=== PATIENT | female | born 1970 | race Caucasian/White ===

== ENCOUNTER → 2016-07-24 | Outpatient (CLI) | payer OTHER ==
--- NOTE | 2016-07-25 14:46 | MM ---
Reason for exam: screening (asymptomatic). Last mammogram was performed 1 year ago. History: Family history of breast cancer in grandmother at age 70, premenopausal breast cancer in cousin at age 45, and breast cancer in aunt at age 56. Cyst aspiration of the right breast, 1989. Physical Findings: A clinical breast exam by your physician is recommended on an annual basis and results should be correlated with mammographic findings. MG 3D Screening Mammo W/Cad Bilateral CC and MLO view(s) were taken. Prior study comparison: July 16, 2015, bilateral MG 3d screening mammo w/cad. June 22, 2014, bilateral MG screening mammo w CAD. The breast tissue is heterogeneously dense. This may lower the sensitivity of mammography. No significant changes when compared with prior studies. ASSESSMENT: Benign, BI-RAD 2 RECOMMENDATION: Routine screening mammogram of both breasts in 1 year.
== END | disposition home or self-care (01) ==
LOC: RADMAMWWP 12:29
PROVIDERS: ATTEND Surgery
DX: Z12.31 Encounter for screening mammogram for malignant neoplasm of breast (principal)
CPT/HCPCS: 77063; G0202

== ENCOUNTER → 2017-10-29 | Outpatient (CLI) | payer OTHER ==
--- NOTE | 2017-10-30 10:28 | MM ---
Reason for exam: screening (asymptomatic). Last mammogram was performed 1 year and 3 months ago. History: Patient is postmenopausal. Family history of breast cancer in grandmother at age 70, premenopausal breast cancer in cousin at age 45, breast cancer in maternal aunt, and breast cancer in maternal aunt at age 56. Cyst aspiration of the right breast, 1989. Physical Findings: A clinical breast exam by your physician is recommended on an annual basis and results should be correlated with mammographic findings. MG 3D Screening Mammo W/Cad Bilateral CC and MLO view(s) were taken. Prior study comparison: July 24, 2016, bilateral MG 3d screening mammo w/cad. July 16, 2015, bilateral MG 3d screening mammo w/cad. There are scattered fibroglandular densities. There is no discrete abnormality. No significant changes when compared with prior studies. ASSESSMENT: Negative, BI-RAD 1 RECOMMENDATION: Routine screening mammogram of both breasts in 1 year.
== END | disposition home or self-care (01) ==
LOC: RADMAMWWP 09:31
PROVIDERS: ATTEND Surgery
DX: Z12.31 Encounter for screening mammogram for malignant neoplasm of breast (principal)
CPT/HCPCS: 77063; 77067

== ENCOUNTER → 2017-10-29 | Outpatient (CLI) | payer OTHER ==
--- NOTE | 2017-10-29 10:25 | US ---
EXAMINATION TYPE: US thyroid st tissue head/neck DATE OF EXAM: 10/29/2017 COMPARISON: US 08/16/15 and 08/06/2013 CLINICAL HISTORY: E04.2 Thyroid nodule. GLAND SIZE: Right Lobe: 5.9 x 1.8 x 1.6 cm Overall Parenchyma: homogenous Left Lobe: 4.8 x 1.5 x 1.4 cm Overall Parenchyma: homogeneous Isthmus Thickness: 0.2 cm NODULES RIGHT: # of nodules measured on right: 1 1. 1.3 X 0.8 x 0.8 cm hypoechoic mixed nodule at the mid pole with well-defined margins. This nodu le is as tall as wide and shows intranodular vascularity. Prior size: 1.2 x 0.8 x 0.9 cm LEFT: # of nodules measured on left: 0 ISTHMUS: # of nodules measured in the isthmus: 0 Bilateral neck scanned, no evidence of lymphadenopathy. IMPRESSION: Hypervascular right thyroid lymph node shows increased through transmission and stability from 2016 a nd also overall from 2013 favored to represent an inflammatory cystic lesion. No new nodules.
== END ==
LOC: RADUSWWP 09:28
PROVIDERS: ATTEND Internal Medicine Endocrinology, Diabetes & Metabolism
DX: E04.2 Nontoxic multinodular goiter (principal)
CPT/HCPCS: 76536; 77063; 77067

== ENCOUNTER → 2017-11-07 | Outpatient (CLI) | payer OTHER ==
--- NOTE | 2017-11-07 15:57 | US ---
EXAMINATION TYPE: US kidneys/renal and bladder DATE OF EXAM: 11/07/2017 COMPARISON: NONE CLINICAL HISTORY: R31.9 HEMATURIA. EXAM MEASUREMENTS: Right Kidney: 9.3 x 5.0 x 3.4 cm Left Kidney: 10.7 x 4.2 x 4.5 cm Right Kidney: Medial anechoic lesion at hilum = 1.2 x 0.7 cm too small to characterize image 11. Left Kidney: No hydronephrosis or masses seen Bladder: distended, wnl Bilateral Jets seen There is no evidence for hydronephrosis at this point in time. No nephrolithiasis is seen. No ortega s are identified. The urinary bladder is anechoic. Bilateral ureteral jets are seen. IMPRESSION: No significant finding is seen to account for patient's symptoms of hematuria. Advise CT urogram work up if symptoms persist.
== END | disposition home or self-care (01) ==
LOC: RADUSWWP 15:16
PROVIDERS: ATTEND Family Medicine
DX: R31.9 Hematuria, unspecified (principal)
CPT/HCPCS: 76770

== ENCOUNTER → 2017-11-08 | Outpatient (CLI) | payer OTHER ==
[2017-11-08 10:00] VITALS: BP 100/68; PULSE 67; TEMP 98.3; BMI 24.3
--- NOTE | 2017-11-08 10:11 | P.GSHP ---
History of Present Illness H&P Date: 11/08/17 Patient is a 47 year old white female status post bilateral mammogram on . This was a BIRAD 1 with no lesions of concern. The patient has no breast pain, no nipple discharge, and no masses in her breast. past surgical history: 1. D&C Past Medical History: 1. blood in urine, had an ultrasound yesterday 2. thyroid nodule followed by DR. Wynn Family History: 1. maternal grandmother breast at 70 2. two maternal aunts with breast cancer, youngest at 60's 3. maternal cousin breast cancer in her 40's BRCA gene test negative on relatives 4. paternal grandfather pancreatic cancer 5. paternal grandmother ? breast cancer menarche: 12 : 3, 3 live births, breast fed: all about 2 years menopause: no periods for a year BCP: none Hormones: none Social history: Smoking: Negative Alcohol: Once a year drugs: Negative - Constitutional Constitutional: Denies chills, Denies fever - EENT Eyes: denies blurred vision (wears glasses since a child), denies pain Ears: deny: decreased hearing, tinnitus Ears, nose, mouth and throat: Denies headache, Denies sore throat - Breasts Breasts: bilateral: as per HPI - Cardiovascular Cardiovascular: Denies chest pain, Denies shortness of breath - Respiratory Respiratory: Denies cough, Denies 7 - Gastrointestinal Gastrointestinal: Denies abdominal pain, Denies diarrhea, Denies nausea, Denies vomiting - Genitourinary (Female) Comment: Ultrasound was performed for hematuria and she will follow with primary care doctor with respect to this Genitourinary: Reports as per HPI, Reports hematuria, Denies dysuria - Menstruation Comment: perimenopausal - Musculoskeletal Comment: left hip pain at times - Integumentary Integumentary: Denies pruritus, Denies rash - Neurological Neurological: Denies numbness, Denies weakness - Psychiatric Psychiatric: Denies anxiety, Denies depression - Endocrine Comment: thyroid nodule followed by endocrine Endocrine: Denies fatigue, Denies weight change - Hematologic/Lymphatic Comment: none - Allergic/Immunologic Allergic/Immunologic: Reports seasonal allergies Surgical - Exam - General well developed, well nourished, no distress - Eyes normal ocular movement, no icteric - ENT no hearing loss, no congestion - Neck no masses, trachea midline - Respiratory normal respiratory effort, clear to auscultation - Cardiovascular Rhythm: regular Heart Sounds: normal: S1, S2 - Abdomen Abdomen: soft, non tender, no guarding, no rigid, no rebound - Neurologic no disoriented, no combative - Musculoskeletal normal gait, normal posture - Psychiatric oriented to time, oriented to person, oriented to place, speech is normal, memory intact Breast examination: Right breast: Multiple positional exam no dominant masses or nodules of concern fibrocystic changes Right axilla: No adenopathy of concern Left breast: Multiple positional exam fibrocystic changes no dominant masses or nodules of concern Left axilla: No adenopathy of concern Results bilateral mammogram 10/29/17 BIRADS 1 Assessment and Plan Assessment: Impression/plan: 1. Fibrocystic breast changes 2. BIRADS 1 mammogram 10/29/2017 3. Recent hematuria being followed by primary care doctor Plan: 1. Repeat bilateral mammogram and physician exam in 1 year 2. Follow up sooner if any lesions of concern 3. Follow-up on hematuria with Dr. Chan CC: Dr. Chan
== END | disposition home or self-care (01) ==
LOC: WWCWWP 09:39
PROVIDERS: ATTEND Surgery
DX: Z53.9 Procedure and treatment not carried out, unspecified reason (principal)

== ENCOUNTER → 2018-05-14 | Outpatient (CLI) | payer OTHER ==
--- NOTE | 2018-05-14 15:23 | CT ---
EXAMINATION TYPE: CT urogram wo/w con DATE OF EXAM: 05/14/2018 HISTORY: Microscopic hematuria x [address] DLP: 1116.3mGycm Automated Exposure Control for Dose Reduction was Utilized. CONTRAST: CT scan of the abdomen and pelvis is performed without and with IV Contrast, patient injected with 10 0 mL of Isovue M300. COMPARISON: Ultrasound 11/07/2017 FINDINGS: LUNG BASES: No significant abnormality is appreciated. LIVER/GB: No significant abnormality is appreciated. PANCREAS: No significant abnormality is seen. SPLEEN: No significant abnormality is seen. ADRENALS: No significant abnormality is seen. KIDNEYS: 2 tiny hypodensities within the right kidney too small to characterize measuring less than a centimeter.. Left ureter is not well seen throughout its course. The right ureter demonstrates no fi lling defect. There is no hydronephrosis. No definite renal calcifications are seen. BOWEL: No significant abnormality is seen. LYMPH NODES: No greater than 1cm abdominal or pelvic lymph nodes are appreciated. OSSEOUS STRUCTURES: No significant abnormality is seen. OTHER: No significant additional abnormality is seen. IMPRESSION: 1. No hydronephrosis or nephrolithiasis. There are 2 subcentimeter right renal lesions too small to c haracterize but likely benign. Follow-up short-term 3-6 month recommended to confirm stability. No pr ior exams are available for comparison.
== END | disposition home or self-care (01) ==
LOC: RADCTMAIN 14:04
PROVIDERS: ATTEND Urology
DX: N28.89 Other specified disorders of kidney and ureter (principal); R31.1 Benign essential microscopic hematuria; Z88.2 Allergy status to sulfonamides; Z88.1 Allergy status to other antibiotic agents; Z88.8 Allergy status to other drugs, medicaments and biological substances
CPT/HCPCS: 74178; 74400; Q9967

== ENCOUNTER → 2018-11-04 | Outpatient (CLI) | payer OTHER ==
--- NOTE | 2018-11-05 08:59 | MM ---
Reason for exam: screening (asymptomatic). Last mammogram was performed 1 year ago. History: Patient is postmenopausal. Family history of breast cancer in grandmother at age 70, premenopausal breast cancer in cousin at age 45, breast cancer in maternal aunt, and breast cancer in maternal aunt at age 56. Cyst aspiration of the right breast, 1989. Physical Findings: A clinical breast exam by your physician is recommended on an annual basis and results should be correlated with mammographic findings. MG 3D Screening Mammo W/Cad Bilateral CC and MLO view(s) were taken. Prior study comparison: October 29, 2017, bilateral MG 3d screening mammo w/cad. July 24, 2016, bilateral MG 3d screening mammo w/cad. There are scattered fibroglandular densities. No significant changes when compared with prior studies. ASSESSMENT: Negative, BI-RAD 1 RECOMMENDATION: Routine screening mammogram of both breasts in 1 year.
== END | disposition home or self-care (01) ==
LOC: RADMAMWWP 11:00
PROVIDERS: ATTEND Surgery
DX: Z12.31 Encounter for screening mammogram for malignant neoplasm of breast (principal)
CPT/HCPCS: 77063; 77067

== ENCOUNTER → 2018-11-07 | Outpatient (CLI) | payer OTHER ==
--- NOTE | 2018-11-07 10:44 | US ---
EXAMINATION TYPE: US kidneys/renal and bladder DATE OF EXAM: 11/07/2018 COMPARISON: CT urogram May 14, 2018 CLINICAL HISTORY: N28.1 right renal cyst. EXAM MEASUREMENTS: Right Kidney: 10.1 x 3.5 x 4.3 cm Left Kidney: 9.9 x 4.1 x 4.6 cm Post Void Residual Volume: 9.2 mL Right Kidney: small cyst 0.5 x 0.7 x 0.4 cm Left Kidney: No hydronephrosis or masses seen Bladder: wnl Bilateral Jets seen: Yes Normal Post Void Residual: No There is no evidence for hydronephrosis at this point in time. No nephrolithiasis is seen. No worri some renal masses are identified. Incidental subcentimeter cyst right kidney redemonstrated. The uri nary bladder is anechoic. Bilateral ureteral jets are seen. IMPRESSION: Subcentimeter simple appearing right cyst redemonstrated.
== END | disposition home or self-care (01) ==
LOC: RADUSWWP 09:03
PROVIDERS: ATTEND Urology
DX: N28.1 Cyst of kidney, acquired (principal); Z88.1 Allergy status to other antibiotic agents
CPT/HCPCS: 76770

== ENCOUNTER → 2018-11-07 | Outpatient (CLI) | payer OTHER ==
[2018-11-07 09:24] VITALS: BP 112/73; PULSE 70; RESP 16; TEMP 97.9; BMI 23.9
--- NOTE | 2018-11-07 09:53 | P.PN ---
Subjective Progress Note Date: 11/07/18 Principal diagnosis: fibrocystic breast disease Patient is a 48 year old white female status post bilateral mammogram on 11-04-18. This was a BIRAD 1 with no lesions of concern. The patient has no breast pain, no nipple discharge, and no masses in her breast. past surgical history: 1. D&C Past Medical History: 1. blood in urine, had an ultrasound which was negative, she is repeating this today 2. thyroid nodule followed by endocrinology Family History: 1. maternal grandmother breast at 70 2. two maternal aunts with breast cancer, youngest at 60's 3. maternal cousin breast cancer in her 40's BRCA gene test negative on relatives 4. paternal grandfather pancreatic cancer 5. paternal grandmother ? breast cancer menarche: 12 : 3, 3 live births, breast fed: all about 2 years menopause: no periods for a year BCP: none Hormones: none Social history: Smoking: Negative Alcohol: Once a year drugs: Negative ROS: HEENT: Negative Lungs: Negative Heart: Negative GI: Negative : Blood in urine being followed with ultrasounds and urology Musculoskeletal: Negative Hematologic: Negative Skin: Negative ALLERGIES: Seasonal Objective - Vital Signs Vital signs: Vital Signs Temp 97.9 F 11/07/18 09:18 Pulse 70 11/07/18 09:18 Resp 16 11/07/18 09:18 BP 112/73 11/07/18 09:18 Pulse Ox 100 11/07/18 09:18 Intake & Output 11/06/18 11/07/18 11/07/18 18:59 06:59 18:59 Weight 65.317 kg - Constitutional General appearance: Present: average body habitus - EENT Eyes: Present: EOMI ENT: Present: hearing grossly normal - Respiratory Respiratory: bilateral: CTA - Cardiovascular Rhythm: regular Heart sounds: normal: S1, S2 - Gastrointestinal Gastrointestinal Comment(s): no guarding or rebound General gastrointestinal: Present: soft - Integumentary Integumentary: Present: normal turgor - Musculoskeletal Musculoskeletal: Present: gait normal - Psychiatric Psychiatric: Present: A&O x's 3, appropriate affect, intact judgment & insight - Additional findings Additional findings: breast exam: right breast: Multi-positional exam no dominant masses or nodules of concern Right axilla: No adenopathy of concern Left breast: Multi-positional exam the dominant masses or nodules of concern Left axilla: No adenopathy of concern Assessment and Plan Assessment: Impression: 1. Fibrocystic breast changes 2. BIRADS 1 mammogram 11-04- 3. Hematuria being followed by urology Plan: 1. Repeat bilateral mammogram physician exam in 1 year 2. Follow up sooner if any questions of concern 3. Continue follow-up and hematuria with Dr. Chan Cc: Dr. Chan
== END ==
LOC: WWCWWP 09:01
PROVIDERS: ATTEND Surgery
DX: Z53.9 Procedure and treatment not carried out, unspecified reason (principal)

== ENCOUNTER → 2019-12-09 | Outpatient (CLI) | payer BC ==
--- NOTE | 2019-12-09 10:57 | MM ---
Reason for exam: screening (asymptomatic). Last mammogram was performed 1 year and 1 month ago. History: Patient is postmenopausal. Family history of breast cancer in grandmother at age 70, premenopausal breast cancer in cousin at age 45, breast cancer in maternal aunt, and breast cancer in maternal aunt at age 56. Cyst aspiration of the right breast, 1989. Physical Findings: A clinical breast exam by your physician is recommended on an annual basis and results should be correlated with mammographic findings. MG 3D Screening Mammo W/Cad Bilateral CC and MLO view(s) were taken. Prior study comparison: November 04, 2018, bilateral MG 3d screening mammo w/cad. October 29, 2017, bilateral MG 3d screening mammo w/cad. There are scattered fibroglandular densities. There is no discrete abnormality. ASSESSMENT: Negative, BI-RAD 1 RECOMMENDATION: Routine screening mammogram of both breasts in 1 year.
== END | disposition home or self-care (01) ==
LOC: RADMAMWWP 09:55
PROVIDERS: ATTEND Surgery
DX: Z12.31 Encounter for screening mammogram for malignant neoplasm of breast (principal)
CPT/HCPCS: 77063; 77067

== ENCOUNTER → 2019-12-12 | Outpatient (CLI) | payer BC ==
[2019-12-12 14:15] VITALS: BP 113/76; PULSE 69; RESP 16; TEMP 98.4
--- NOTE | 2019-12-12 14:52 | P.PN ---
Subjective Progress Note Date: 12/12/19 Principal diagnosis: fibrocystic breast disease Patient is a 49 year old white female status post bilateral mammogram on 12-09-19. This was a BIRAD 1 with no lesions of concern. The patient has no breast pain, no nipple discharge, and no masses in her breast. past surgical history: 1. D&C Past Medical History: 1. blood in urine, had an ultrasound which was negative, most recent ultrasound (-) 2. thyroid nodule followed by endocrinology Family History: 1. maternal grandmother breast at 70 2. two maternal aunts with breast cancer, youngest at 60's 3. maternal cousin breast cancer in her 40's BRCA gene test negative on relatives 4. paternal grandfather pancreatic cancer 5. paternal grandmother ? breast cancer menarche: 12 : 3, 3 live births, breast fed: all about 2 years menopause: no periods for a year BCP: none Hormones: none Social history: Smoking: Negative Alcohol: Once a year drugs: Negative ROS: HEENT: Negative Lungs: Negative Heart: Negative GI: Negative : Blood in urine was followed by urology Musculoskeletal: Negative Hematologic: Negative Skin: Negative ALLERGIES: Seasonal Objective - Vital Signs Vital signs: Vital Signs Temp 98.4 F 12/12/19 14:10 Pulse 69 12/12/19 14:10 Resp 16 12/12/19 14:10 BP 113/76 12/12/19 14:10 Pulse Ox 99 12/12/19 14:10 Intake & Output 12/11/19 12/12/19 12/12/19 18:59 06:59 18:59 Weight 63.503 kg - Exam BMI 22.9 - Constitutional General appearance: Present: average body habitus - EENT Eyes: Present: EOMI ENT: Present: hearing grossly normal - Respiratory Respiratory: bilateral: CTA - Cardiovascular Rhythm: regular Heart sounds: normal: S1, S2 - Gastrointestinal General gastrointestinal: Present: normal bowel sounds, soft - Integumentary Integumentary: Present: normal turgor - Musculoskeletal Musculoskeletal: Present: gait normal - Psychiatric Psychiatric: Present: A&O x's 3, appropriate affect, intact judgment & insight - Additional findings Additional findings: Breast Exam: BRA 36B inspection: bilateral ptosis grade 2/3 Operation: Right breast: Multiple positional exam fibrocystic changes no dominant masses or nodules of concern Right axilla: No adenopathy of concern left breast: Multiple positional exam no dominant masses or nodules of concern Left axilla: No adenopathy of concern Assessment and Plan Assessment: Impression: 1. Fibrocystic breast changes Plan: 1. Repeat bilateral mammogram in 1 year with physician exam at that time CC: Dr. Chan encounter 15 minutes, > 50% of time in planning and counselling
== END | disposition home or self-care (01) ==
LOC: WWCWWP 13:57
PROVIDERS: ATTEND Surgery
DX: Z53.9 Procedure and treatment not carried out, unspecified reason (principal)

== ENCOUNTER → 2020-12-06 | Outpatient (CLI) | payer BC ==
--- NOTE | 2020-12-07 13:32 | MM ---
Reason for exam: screening (asymptomatic). Last mammogram was performed 1 year ago. History: Patient is postmenopausal. Family history of breast cancer in grandmother at age 70, premenopausal breast cancer in cousin at age 45, breast cancer in maternal aunt, and breast cancer in maternal aunt at age 56. Cyst aspiration of the right breast, 1989. Took hormonal contraceptives for 2 years. Physical Findings: A clinical breast exam by your physician is recommended on an annual basis and results should be correlated with mammographic findings. MG 3D Screening Mammo W/Cad Bilateral CC and MLO view(s) were taken. Prior study comparison: December 09, 2019, bilateral MG 3d screening mammo w/cad. November 04, 2018, bilateral MG 3d screening mammo w/cad. The breast tissue is heterogeneously dense. This may lower the sensitivity of mammography. No significant changes when compared with prior studies. ASSESSMENT: Negative, BI-RAD 1 RECOMMENDATION: Routine screening mammogram of both breasts in 1 year.
== END | disposition home or self-care (01) ==
LOC: RADMAMWWP 13:37
PROVIDERS: ATTEND Surgery
DX: Z12.31 Encounter for screening mammogram for malignant neoplasm of breast (principal); Z78.0 Asymptomatic menopausal state; Z79.3 Long term (current) use of hormonal contraceptives; Z80.3 Family history of malignant neoplasm of breast
CPT/HCPCS: 77063; 77067

== ENCOUNTER → 2020-12-24 | Outpatient (CLI) | payer BC ==
[2020-12-24 15:18] VITALS: BP 102/64; PULSE 67; RESP 12; TEMP 99.2
--- NOTE | 2020-12-24 15:32 | P.PN ---
Subjective Progress Note Date: 12/24/20 Principal diagnosis: fibrocystic breast disease fibrocystic breast disease Patient is a 50 year old white female status post bilateral mammogram on 12-06-20. This was a BIRAD 1 with no lesions of concern. The patient has no breast pain, no nipple discharge, and no masses in her breast. past surgical history: 1. D&C Past Medical History: 1. blood in urine, had an ultrasound which was negative, most recent ultrasound (-) 2. thyroid nodule followed by endocrinology Family History: 1. maternal grandmother breast at 70 2. two maternal aunts with breast cancer, youngest at 60's 3. maternal cousin breast cancer in her 40's BRCA gene test negative on relatives 4. paternal grandfather pancreatic cancer 5. paternal grandmother ? breast cancer menarche: 12 : 3, 3 live births, breast fed: all about 2 years menopause: no periods for a year BCP: none Hormones: none Social history: Smoking: Negative Alcohol: Once a year drugs: Negative ROS: HEENT: Negative Lungs: Negative Heart: Negative GI: Negative : Blood in urine was followed by urology Musculoskeletal: Negative Hematologic: Negative Skin: Negative ALLERGIES: Seasonal Objective - Exam BMI 24.1 - EENT Eyes: Present: EOMI ENT: Present: hearing grossly normal - Neck Neck: Present: normal ROM - Respiratory Respiratory: bilateral: CTA - Cardiovascular Rhythm: regular Heart sounds: normal: S1, S2 - Integumentary Integumentary: Present: normal turgor - Musculoskeletal Musculoskeletal: Present: gait normal - Psychiatric Psychiatric: Present: A&O x's 3, appropriate affect, intact judgment & insight - Additional findings Additional findings: Breast Exam: BRA: 36B inspection: bilateral ptosis grade 2/3 palpation: right breast: multipositional exam no dominate masses or nodules of concern right axilla: no adenopathy of concern left breast: multipositional exam no dominate masses or nodules of concern left axilla: no adenopathy of concern Assessment and Plan Assessment: Impression: fibrocystic breast disease Plan: bilateral mammogram in 1 year and follow up
== END ==
LOC: WWCWWP 14:32
PROVIDERS: ATTEND Surgery
DX: N60.11 Diffuse cystic mastopathy of right breast (principal); N60.12 Diffuse cystic mastopathy of left breast; Z88.1 Allergy status to other antibiotic agents

== ENCOUNTER → 2021-12-22 | Outpatient (CLI) | payer BC ==
[2021-12-22 15:06] VITALS: BP 100/64; PULSE 63; RESP 17; TEMP 98.2
--- NOTE | 2021-12-22 15:23 | P.PN ---
Subjective Progress Note Date: 12/22/21 Principal diagnosis: fibrocystic breast Patient is a 51 year old white female status post bilateral mammogram on 12-09-21. This was a BIRAD 1 with no lesions of concern. The patient has no breast pain, no nipple discharge, and no masses in her breast. past surgical history: 1. D&C Past Medical History: 1. blood in urine, had an ultrasound which was negative, most recent ultrasound (-), followed with urology 2. thyroid nodule followed by endocrinology following Family History: 1. maternal grandmother breast at 70 2. two maternal aunts with breast cancer, youngest at 60's 3. maternal cousin breast cancer in her 40's BRCA gene test negative on relatives 4. paternal grandfather pancreatic cancer 5. paternal grandmother ? breast cancer menarche: 12 : 3, 3 live births, breast fed: all about 2 years menopause: no periods for a year BCP: none Hormones: none Social history: Smoking: Negative Alcohol: Once a year drugs: Negative ROS: HEENT: Negative Lungs: Negative Heart: Negative GI: Negative : Blood in urine was followed by urology Musculoskeletal: Negative Hematologic: Negative Skin: Negative ALLERGIES: Seasonal Objective - Vital Signs Vital signs: Vital Signs Temp 98.2 F 12/22/21 15:04 Pulse 63 12/22/21 15:04 Resp 17 12/22/21 15:04 BP 100/64 12/22/21 15:04 Pulse Ox 100 12/22/21 15:04 FiO2 Intake & Output 12/21/21 12/22/21 12/22/21 18:59 06:59 18:59 Weight 65.771 kg - Exam BMI: 24.1 - Constitutional General appearance: Present: cooperative - EENT Eyes: Present: EOMI ENT: Present: hearing grossly normal - Neck Neck: Present: normal ROM - Respiratory Respiratory: bilateral: CTA - Cardiovascular Rhythm: regular Heart sounds: normal: S1, S2 - Integumentary Integumentary: Present: normal turgor - Musculoskeletal Musculoskeletal: Present: gait normal - Psychiatric Psychiatric: Present: A&O x's 3, appropriate affect, intact judgment & insight - Additional findings Additional findings: Breast Exam: BRA: 36B inspection: bilateral ptosis grade 2/3 palpation: right breast: multipositional exam no dominate masses or nodules of concern right axilla: no adenopathy of concern left breast: multipositional exam no dominate masses or nodules of concern left axilla: no adenopathy of concern Assessment and Plan Assessment: Impression: Fibrocystic breast changes Plan: Bilateral mammogram in 1 year with physician exam at that time Patient to follow up sooner any questions or concerns CC: Slime Young
== END ==
LOC: WWCWWP 14:32
PROVIDERS: ATTEND Surgery
DX: N60.19 Diffuse cystic mastopathy of unspecified breast (principal); Z88.1 Allergy status to other antibiotic agents; Z88.2 Allergy status to sulfonamides

== ENCOUNTER → 2022-12-11 | Outpatient (CLI) | payer BC ==
--- NOTE | 2022-12-12 08:11 | MM ---
Reason for Exam: Screening (asymptomatic). Last screening mammogram was performed 12 month(s) ago. Patient History: Menarche at age 10. First Full-Term at age 27. Postmenopausal. Patient has history of breast feeding. Patient used Hormonal Contraceptives for 2 years. 1989, Cyst Aspiration on the Right side. Maternal grandmother had breast cancer, age 70. Maternal cousin had breast cancer, age 45. Maternal aunt had breast cancer, age 60. Maternal aunt had breast cancer, age 56. Risk Values: Viktoriya 5 year model risk: 1.3%. NCI Lifetime model risk: 9.3%. Prior Study Comparison: 12/09/2019 Bilateral Screening Mammogram, [facility]. 12/06/2020 Bilateral Screening Mammogram, [facility]. 12/09/2021 Bilateral MG 3D screening mammo w/cad, [facility]. Tissue Density: The breast tissue is heterogeneously dense. This may lower the sensitivity of mammography. Findings: Analyzed By CAD. There is no suspicious group of microcalcifications or new suspicious mass in either breast. Overall Assessment: Negative, BI-RAD 1 Management: Screening Mammogram of both breasts in 1 year. . Patient should continue monthly self-breast exams. A clinical breast exam by your physician is recommended on an annual basis. This exam should not preclude additional follow-up of suspicious palpable abnormalities. Note on Viktoriya scores and lifetime risk: 1. A Viktoriya score greater than 3% is considered moderate risk. If this is the case, consider specialist referral to assess eligibility for a risk reducing agent. 2. If overall lifetime risk for the development of breast cancer is 20% or higher, the patient may qualify for future screening with alternating mammogram and breast MRI. Electronically signed and approved by: Lon Conde M.D. Radiologis
== END | disposition home or self-care (01) ==
LOC: RADMAMWWP 08:56
PROVIDERS: ATTEND Surgery
DX: Z12.31 Encounter for screening mammogram for malignant neoplasm of breast (principal); Z78.0 Asymptomatic menopausal state; Z80.3 Family history of malignant neoplasm of breast
CPT/HCPCS: 77067

== ENCOUNTER → 2023-08-06 | Outpatient (CLI) | payer BC ==
[2023-08-06 20:03] LABS: Basophils # (A) 0.05 X 10*3/uL (0.00-0.10); Basophils % (A) 0.8 %; Eosinophils # (A) 0.19 X 10*3/uL (0.04-0.35); Eosinophils % (A) 3.1 %; HCT 39.6 % (37.2-46.3); HGB 12.4 g/dL (12.0-15.0); Lymphocytes # (A) 2.05 X 10*3/uL (0.90-5.00); MCH 26.8 pg (27.0-32.0); MCHC 31.3 g/dL (32.0-37.0); MCV 85.5 FL (80.0-97.0); Mean Platelet Volume 10.7 FL (9.5-12.2); Monocytes # (A) 0.46 X 10*3/uL (0.20-1.00); Monocytes % (A) 7.4 %; NRBC Per 100 WBC 0 X 10*3/uL (0.00-0.01); Neutrophils # (A) 3.44 X 10*3/uL (1.80-7.70); Neutrophils % (A) 55.4 %; Platelet Count 224 X 10*3/uL (140-440); RBC 4.63 X 10*6/uL (4.10-5.20); RDW 13.1 % (11.5-14.5); WBC 6.21 X 10*3/uL (4.50-10.00)
[2023-08-06 21:47] LABS: ALT 19 U/L (8-44); AST 28 U/L (13-35); Albumin 4.3 g/dL (3.8-4.9); Albumin/Globulin Ratio 1.72 Ratio (1.60-3.17); Alkaline Phosphatase 104 U/L (41-126); BUN/Creat Ratio 14.33 Ratio (12.00-20.00); Blood Urea Nitrogen 8.6 mg/dL (9.0-27.0); Calcium 9.5 mg/dL (8.7-10.3); Carbon Dioxide 27.7 mmol/L (21.6-31.8); Chloride 104 mmol/L (96-109); Chol/HDL Ratio 2.47 Ratio; Globulin 2.5 g/dL (1.6-3.3); Glucose 87 mg/dL (70-110); LDL Cholesterol,Calculated 126.9 mg/dL (0.0-131.0); Potassium 4.2 mmol/L (3.5-5.5); Sodium 143 mmol/L (135-145); Total Bilirubin 0.5 mg/dL (0.3-1.2); Total Protein 6.8 g/dL (6.2-8.2); VLDL Calculation 11.84 mg/dL (5.00-40.00)
== END | disposition home or self-care (01) ==
LOC: LABWHC1 12:05
PROVIDERS: ATTEND Nurse Practitioner
DX: Z00.00 Encounter for general adult medical examination without abnormal findings (principal); E78.00 Pure hypercholesterolemia, unspecified; E04.1 Nontoxic single thyroid nodule; D34 Benign neoplasm of thyroid gland
CPT/HCPCS: 36415; 80053; 80061; 83036; 84443; 85025

== ENCOUNTER → 2023-11-06 | Outpatient (CLI) | payer BC ==
[2023-11-06 09:19] VITALS: BP 100/68; PULSE 87; RESP 16; TEMP 97.9
--- NOTE | 2023-11-06 15:56 | P.HPOB ---
History of Present Illness H&P Date: 11/06/23 Chief Complaint: The patient is here for her routine gynecologic exam. This is a 53-year-old -0-1-3 with an LMP of 2018. Patient is here to establish with this office. It has been about 3 years since her last pelvic exam. She previously saw Dr. Su for her gynecologic care. She is without gynecologic complaints and denies any postmenopausal bleeding. Review of Systems The patient's weight has been stable over the last year. She denies respiratory, cardiac, or G.I. problems. Past Medical History Past Medical History: Hyperlipidemia (Attempting to control with diet alone.), Thyroid Disorder Additional Past Medical History / Comment(s): Gastritis, colitis; right lobe thyroid nodule. Environmental allergies. PAST BLACKJACK PIT BOSS HISTORY: She has no history of STDs. History of Any Multi-Drug Resistant Organisms: None Reported Additional Past Surgical History / Comment(s): thyroid biopsy x2; d&c for blighted ovum approx 2000. Last Colonoscopy 2022(next after 2yr). Past Anesthesia/Blood Transfusion Reactions: No Reported Reaction Past Psychological History: No Psychological Hx Reported Smoking Status: Never smoker Past Alcohol Use History: Rare (1/year.) Additional Past Alcohol Use History / Comment(s): Never smoker Past Drug Use History: None Reported Additional History: She has been since 1994 and is currently not working outside of the home. - Past Family History Mother Family Medical History: AFIB, Diabetes Mellitus Additional Family Medical History / Comment(s): Overweight. Maternal grandmother and 2 maternal aunts had breast cancer. A maternal cousin also had breast cancer. Father Family Medical History: CVA/TIA Additional Family Medical History / Comment(s): Overweight. Sister(s) Additional Family Medical History / Comment(s): Colitis. Son(s) Additional Family Medical History / Comment(s): Carcinoid of the colon. Medications and Allergies Home Medications Medication Instructions Recorded Confirmed Type Balsalazide Disodium [Colazal] 750 mg PO DAILY 12/22/21 11/06/23 History Vitamin D3/Vitamin K2 (Mk4) 1 tab PO DAILY 11/06/23 11/06/23 History [Vitamin K2 Plus D3 Tablet] Allergies Allergy/AdvReac Type Severity Reaction Status Date / Time cephalexin [From Keflex] AdvReac Rapid Unverified 11/06/23 09:06 Heart Rate sulfamethoxazole AdvReac Rapid Unverified 11/06/23 09:06 [From Bactrim] Heart Rate trimethoprim [From Bactrim] AdvReac Rapid Unverified 11/06/23 09:06 Heart Rate Exam Vital Signs Temp Pulse Resp BP Pulse Ox 11/06/23 09:14 97.9 F 87 16 100/68 97 Intake and Output 11/06/23 11/06/23 11/06/23 06:59 14:59 22:59 Other: Weight 67.132 kg Height 5 feet 5 inches, weight 148 pounds, BMI 24.6. This is a well-developed well-nourished white female who is alert and oriented times 3 in no acute distress. HEENT: Within normal limits. NECK: Supple without mass or thyromegaly. CHEST AND LUNGS: Clear to auscultation. HEART: Regular rate and rhythm. BREASTS: Are without mass or discharge. AXILLARY EXAM: Negative for adenopathy. BACK: Negative for CVA tenderness. ABDOMEN: Soft, nontender, without palpable masses. PELVIC EXAM: Normal external genitalia with mild atrophy. Cervix and vagina appear normal with mild atrophy. There is no unusual discharge. There is no evidence of prolapse. The uterus is slightly retroverted, nongravid size and nontender. There are no palpable adnexal masses or tenderness. RECTAL EXAM: Rectovaginal exam is negative for mass or tenderness and is negative for occult blood. EXTREMITIES: Nontender. IMPRESSION: 1. 53-year-old menopausal female with normal gynecologic exam. 2. History of osteoporosis by 12/12/2021 bone density test. PLAN: 1. Pap smear cotest was performed. 2. Self breast awareness was discussed with the patient. We have also discussed symptoms associated with inflammatory breast cancer. 3. Screening mammogram was done on 12/11/2022. This will be repeated after 1 year. The order slip was given to the patient for this. 4. Osteoporosis management was discussed. I have stressed the importance of adequate calcium, vitamin D and regular exercise. Recommended amounts of calcium and vitamin D were also discussed. I have recommended taking prescription medication for osteoporosis. She understands osteoporosis indicates an increased risk for bone fractures. We have discussed different types of medications which are available. We have discussed the Fosamax which can be taken orally. We discussed certain risks including an increased risk for esophageal ulceration, especially if not taken properly. We have also discussed osteonecrosis of the jaw with certain types of jaw surgery or extensive dental surgeries. Information on Fosamax and osteoporosis were given to the patient. I have also given her an order slip for a serum creatinine and serum calcium. If she desires to proceed with Fosamax, she will have these labs drawn or send me screening test results from her PCP if done recently or in the near future. 5. She was advised to return in one year for her annual well woman exam.
== END ==
LOC: WWCWWP 08:38
PROVIDERS: ATTEND Obstetrics & Gynecology
DX: Z01.419 Encounter for gynecological examination (general) (routine) without abnormal findings (principal); M81.0 Age-related osteoporosis without current pathological fracture; Z78.0 Asymptomatic menopausal state; Z80.3 Family history of malignant neoplasm of breast; Z88.1 Allergy status to other antibiotic agents; Z88.2 Allergy status to sulfonamides

== ENCOUNTER → 2023-12-13 | Outpatient (CLI) | payer BC ==
--- NOTE | 2023-12-31 10:56 | MM ---
Reason for Exam: Screening (asymptomatic). Last screening mammogram was performed 12 month(s) ago. Patient History: Menarche at age 10. First Full-Term at age 27. Postmenopausal. Patient has history of breast feeding. Patient used Hormonal Contraceptives for 2 years. 1989, Cyst Aspiration on the Right side. Maternal grandmother had breast cancer, age 70. Maternal cousin had breast cancer, age 45. Maternal aunt had breast cancer, age 60. Maternal aunt had breast cancer, age 56. Risk Values: Viktoriya 5 year model risk: 1.3%. NCI Lifetime model risk: 9.1%. Prior Study Comparison: 12/06/2020 Bilateral Screening Mammogram, [facility]. 12/09/2021 Bilateral MG 3D screening mammo w/cad, [facility]. 12/11/2022 Bilateral MG screening mammo w CAD, [facility]. Tissue Density: There are scattered areas of fibroglandular density. Findings: Analyzed By CAD. There is no suspicious group of microcalcifications or new suspicious mass in either breast. Overall Assessment: Negative, BI-RAD 1 Management: Screening Mammogram of both breasts in 1 year. . Patient should continue monthly self-breast exams. A clinical breast exam by your physician is recommended on an annual basis. This exam should not preclude additional follow-up of suspicious palpable abnormalities. Note on Viktoriya scores and lifetime risk: 1. A Viktoriya score greater than 3% is considered moderate risk. If this is the case, consider specialist referral to assess eligibility for a risk reducing agent. 2. If overall lifetime risk for the development of breast cancer is 20% or higher, the patient may qualify for future screening with alternating mammogram and breast MRI. Electronically signed and approved by: Lon Conde M.D. Radiologis
== END | disposition home or self-care (01) ==
LOC: RADMAMWWP 12-12 19:42
PROVIDERS: ATTEND Surgery
DX: Z12.31 Encounter for screening mammogram for malignant neoplasm of breast (principal); R92.323 Mammographic fibroglandular density, bilateral breasts; Z78.0 Asymptomatic menopausal state; Z80.3 Family history of malignant neoplasm of breast; Z92.0 Personal history of contraception
CPT/HCPCS: 77067

== ENCOUNTER → 2024-01-17 | Outpatient (CLI) | payer BC ==
--- NOTE | 2024-01-17 09:25 | P.PN ---
Subjective Progress Note Date: 01/17/24 Principal diagnosis: fibrocystic breast 01/17/24 Principal diagnosis: fibrocystic breast disease Patient is a 53 year old white female status post bilateral mammogram on 12-13-23. This was a BIRAD 1 with no lesions of concern. The patient has no breast pain, no nipple discharge, and no masses in her breast. past surgical history: 1. D&C Past Medical History: 1. blood in urine, had an ultrasound which was negative, most recent ultrasound (-), followed with urology 2. thyroid nodule followed by endocrinology following 3. Family History: 1. maternal grandmother breast at 70 2. two maternal aunts with breast cancer, youngest at 60's 3. maternal cousin breast cancer in her 40's BRCA gene test negative on relatives 4. paternal grandfather pancreatic cancer 5. paternal grandmother ? breast cancer menarche: 12 : 3, 3 live births, breast fed: all about 2 years menopause: no periods for a year BCP: none Hormones: none Social history: Smoking: Negative Alcohol: Once a year drugs: Negative ROS: HEENT: Negative Lungs: Negative Heart: Negative GI: Negative : Blood in urine was followed by urology Musculoskeletal: Negative Hematologic: Negative Skin: Negative ALLERGIES: Seasonal Objective - Constitutional General appearance: Present: cooperative - EENT Eyes: Present: EOMI ENT: Present: hearing grossly normal - Neck Neck: Present: normal ROM - Respiratory Respiratory: bilateral: CTA - Cardiovascular Rhythm: regular Heart sounds: normal: S1, S2 - Integumentary Integumentary: Present: normal turgor - Musculoskeletal Musculoskeletal: Present: gait normal - Psychiatric Psychiatric: Present: A&O x's 3, appropriate affect, intact judgment & insight - Additional findings Additional findings: Breast Exam: BRA: 36B inspection: bilateral ptosis grade 2/3 palpation: right breast: multipositional exam no dominate masses or nodules of concern right axilla: no adenopathy of concern left breast: multipositional exam no dominate masses or nodules of concern left axilla: no adenopathy of concern Assessment and Plan Assessment: Impression: Fibrocystic breast changes Plan: Bilateral mammogram in 1 year with physician exam at that time; November 2024 Patient to follow up sooner any questions or concerns CC: brown
[2024-01-17 09:45] VITALS: BP 108/71; PULSE 66; RESP 17; TEMP 98
== END ==
LOC: WWCWWP 08:36
PROVIDERS: ATTEND Surgery
DX: N60.11 Diffuse cystic mastopathy of right breast (principal); N60.12 Diffuse cystic mastopathy of left breast; Z80.3 Family history of malignant neoplasm of breast; Z88.1 Allergy status to other antibiotic agents; Z88.2 Allergy status to sulfonamides